=== PATIENT | female | born 1995 | race Caucasian/White ===

== ENCOUNTER 2017-07-30 05:52 | Emergency (ER) | payer OTHER ==
[2017-07-30 06:12] VITALS: TEMP 98.5; O2SAT 98
[2017-07-30 06:48] LABS: BASO % 0.3 % (0.0-2.0); EOS # 0.4 K/uL (0.0-0.7); EOS % 4.9 % (0.0-4.0); HEMOGLOBIN 12.6 g/dL (12.0-16.0); LYMPH # 1.9 K/uL (1.0-4.3); LYMPH % 23.6 % (20.0-40.0); MEAN CELL VOLUME 88.3 fl (81.0-99.0); MEAN CORPUSCULAR HEMOGLOBIN 30.3 pg (27.0-31.0); MEAN CORPUSCULAR HGB CONC 34.3 g/dL (33.0-37.0); MEAN PLATELET VOLUME 10.9 fl (7.2-11.7); MONO # 0.8 K/uL (0.0-0.8); MONO % 9.5 % (0.0-10.0); NEUT % 61.7 % (50.0-75.0); NRBC % 0.1 % (0.0-0.0); RBC 4.17 Mil/uL (3.80-5.20); RED CELL DISTRIBUTION WIDTH 12.9 % (11.5-14.5)
--- NOTE | 2017-07-30 07:10 | ED PDOC ---
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 Notes seeing bright red blood in urine. (-) abdominal pain. PCP: Dr. Valdes Abnormal Vaginal Bleeding: Yes : 2 Para: 1 Past Medical History Reviewed: Historical Data, Nursing Documentation, Vital Signs Vital Signs: Last Vital Signs Temp 98.5 F 07/30/17 06:06 Pulse 97 H 07/30/17 06:06 Resp 18 07/30/17 06:06 BP 161/99 H 07/30/17 06:06 Pulse Ox 98 07/30/17 06:06 - Medical History PMH: HTN - Surgical History Surgical History: No Surg Hx - Family History Family History: States: Unknown Family Hx - Living Arrangements Living Arrangements: With Family - Home Medications Home Medications: Ambulatory Orders Medication Instructions Recorded Nitrofurantoin Macrocrystals 100 mg PO BID #14 cap 12/13/14 [Macrobid] - Allergies Allergies/Adverse Reactions: Allergies Allergy/AdvReac Type Severity Reaction Status Date / Time No Known Allergies Allergy Verified 07/30/17 06:05 Review of Systems ROS Statement: Except As Marked, All Systems Reviewed And Found Negative Gastrointestinal: Negative for: Abdominal Pain Genitourinary Female: Positive for: Vaginal Bleeding Physical Exam - Reviewed Nursing Documentation Reviewed: Yes Vital Signs Reviewed: Yes - Physical Exam Appears: Positive for: Non-toxic, No Acute Distress Head Exam: Positive for: ATRAUMATIC, NORMOCEPHALIC Skin: Positive for: Normal Color, Warm, Dry Eye Exam: Positive for: Normal appearance Neck: Positive for: Normal Cardiovascular/Chest: Positive for: Regular Rate, Rhythm. Negative for: Murmur Respiratory: Positive for: Normal Breath Sounds. Negative for: Respiratory Distress Gastrointestinal/Abdominal: Positive for: Normal Exam, Soft. Negative for: Tenderness Back: Positive for: Normal Inspection Extremity: Positive for: Normal ROM. Negative for: Deformity Neurologic/Psych: Positive for: Alert, Oriented. Negative for: Motor/Sensory Deficits - Laboratory Results Result Diagrams: 07/30/17 06:30 - ECG O2 Sat by Pulse Oximetry: 98 (RA) Pulse Ox Interpretation: Normal Medical Decision Making Medical Decision Makin Initial impression: 21 year old female with vaginal bleeding in Initial plan: * ABO/RH * T&S * BETA HCG QUANT * US OB TRANSVAGINAL 0700 Patient signed out to Dr. Issa pending imaging and labs. Scribe Attestation: Documented by Loli Paul acting as a scribe for Will Dukes MD. Scribe Attestation: All medical record entries made by the Scribe were at my direction and personally dictated by me. I have reviewed the chart and agree that the record accurately reflects my personal performance of the history, physical exam, medical decision making, and the department course for this patient. I have also personally directed, reviewed, and agree with the discharge instructions and disposition. Disposition - Patient ED Disposition Is Patient to be Admitted: Transfer of Care - Disposition Referrals: Bryce Bryant MD [Primary Care Provider] - Disposition Time: 07:00 Condition: FAIR Patient Signed Over To: Brayan Issa Handoff Comments: pending US and labs
--- NOTE | 2017-07-30 07:54 | ED PDOC ---
- Laboratory Results Result Diagrams: 07/30/17 06:30 - ECG O2 Sat by Pulse Oximetry: 98 (RA) Pulse Ox Interpretation: Normal - Progress ED Course And Treament: 700: Took over care from Dr. Dukes. FU on labs and imaging. Here with vaginal bleeding. Is preg. 855: Stable. AAOx3. SLIUP. Fu with pcp. Disposition - Clinical Impression Clinical Impression: Threatened miscarriage - POA Present On Arrival: None - Disposition Referrals: Bryce Bryant MD [Primary Care Provider] - 07/31/17 Disposition: Routine/Home Disposition Time: 08:56 Condition: FAIR Additional Instructions: Return if not better in 3 days. Instructions: Threatened Miscarriage Forms: [email or web address] (Taiwanese)
[2017-07-30 08:22] VITALS: BP 143/82; PULSE 89; RESP 19
--- NOTE | 2017-07-30 08:54 | US ---
HISTORY: preg vag bld ; last menstrual period is reported 05/03/2017 suggesting gestation of 12 weeks 4 days. COMPARISON: None available. TECHNIQUE: Transabdominal and transvaginal pelvic ultrasound was performed with longitudinal and transverse images submitted for interpretation. FINDINGS: UTERUS: Measures 13.4 x 8.4 x 7.6 cm. The uterus is anteverted with an intrauterine gestation identified within the endometrial cavity. A pole is appreciated within the gestational sac with no yolk sac or amniotic membrane appreciable. Mean sac diameter is 5.9 cm corresponds to 12 weeks 1 day gestation with mean crown-rump length measurement of 5.3 cm corresponding to 12 weeks 0 days. cardiac activity is recorded at 164 beats per minute. A developing posterior placenta is appreciate without hemorrhage related at this time. CERVIX: No cervical abnormality identified. Cervical length measures 4.5 cm. Closed internal os. RIGHT OVARY: Measures 4.3 x 3.5 x 2.3 cm. No solid mass. Normal flow. LEFT OVARY: Not identified. FREE FLUID: No significant free fluid noted. OTHER FINDINGS: None. IMPRESSION: A single viable intrauterine gestation identified with average ultrasonic age of 12 weeks 0 days which is concordant with LMP derived dates. cardiac activity 164 beats per minute and no decidual hemorrhage is identified at this time.
== END 2017-07-30 09:06 | disposition home or self-care (01) ==
LOC: H.ER 05:52
DX: O20.0 Threatened abortion (principal); O16.1 Unspecified maternal hypertension, first trimester; Z3A.12 12 weeks gestation of pregnancy

== ENCOUNTER 2017-09-02 00:03 | Emergency (ER) | payer OTHER ==
[2017-09-02 02:06] LABS: SQUAMOUS EPITHIAL 5 /hpf (0-5); URINE BACTERIA RARE (<OCC); URINE BILIRUBIN NEGATIVE (NEGATIVE); URINE BLOOD NEGATIVE (NEGATIVE); URINE CLARITY CLOUDY (Clear); URINE COLOR YELLOW (YELLOW); URINE GLUCOSE (UA) NEG (Normal); URINE LEUKOCYTE ESTERASE TRACE Leu/uL (Negative); URINE PROTEIN 30 mg/dL (NEGATIVE); URINE URIC ACID CRYSTALS OCC /hpf (<OCC)
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
[2017-09-02 03:36] VITALS: BP 120/96; PULSE 96; RESP 16; TEMP 98.4; O2SAT 98
--- NOTE | 2017-09-02 09:13 | US ---
Date of service: 09/02/2017 PROCEDURE: Obstetrical ultrasound examination HISTORY: abd pain preg COMPARISON: 07/30/2017 TECHNIQUE: Transabdominal FINDINGS: There is a single live intrauterine gestation in cephalic presentation. The heart rate is 156 beats per minute. A grossly normal quantity of amniotic fluid is visualized. A normal fundal placenta is noted. There is no evidence of placenta previa. The cervix is closed and measures 3.7 cm in length. biometry yields a gestational age of 16 weeks 5 days. Please note that the femur length to head circumference ratio is above the normal range and that at this stage of gestation the femur length to BPD and femur length to abdominal circumference ratios do not have a specified range. Followup with ultrasound examination is advised during the 2nd trimester of . . The SHAUNA by ultrasound is 02/12/2018. There has been appropriate interval growth since the prior ultrasound examination of 07/30/2017. No gross anatomic abnormality is identified. anatomy has not been assessed at this time. There are no adnexal masses. The ovaries are not visualized. IMPRESSION: Single live intrauterine gestation without gross abnormality. Appropriate interval growth since prior ultrasound examination. SHAUNA by ultrasound is 02/12/2018. heart rate 156. Cephalic presentation. No previa. Normal amniotic fluid volume. anatomy not assessed at this time. Preliminary interpretation of this examination was reported by [facility] at 1:51 a.m. on 09/02/2017.. There is concurrence of this report with the preliminary interpretation.
== END 2017-09-02 02:58 | disposition home or self-care (01) ==
LOC: H.ER 00:03
DX: O26.892 Other specified pregnancy related conditions, second trimester (principal); O16.2 Unspecified maternal hypertension, second trimester; Z3A.16 16 weeks gestation of pregnancy